=== PATIENT | female | born 1980 | race Two or more races ===

== ENCOUNTER 2017-01-29 10:57 | Emergency (ER) | payer MEDICAID ==
[2017-01-29] MEDS ORDERED: ACETAMINOPHEN 325 MG TABLET PO ONE (11:55)
[2017-01-29] MEDS ORDERED: PSEUDOEPHEDRINE HCL 30 MG TABLET PO ONE (11:55)
[2017-01-29] MEDS ORDERED: DIPHENHYDRAMINE HCL 25 MG CAPSULE PO ONE (11:55)
[2017-01-29] MEDS ORDERED: ONDANSETRON HCL 8 MG TABLET PO ONE (11:55)
--- NOTE | 2017-01-29 12:29 | ER Document Report ---
HPI - HPI Patient complains to provider of: Headache, body aches and sore throat Pain Level: 4 Context: Patient is a 36-year-old. The emergency department complaining of headache, body aches and sore throat for the past day. Patient states that her nephew and her sister been sick at home. She denies that they were diagnosed with flu or strep. Patient states that she has nasal congestion with clear nasal drainage, nonproductive cough, sore throat with headache and body aches. She denies any fevers or chills, difficulty swallowing, difficulty breathing, shortness of breath, chest pain, wheezing, nausea, vomiting, diarrhea, constipation, abdominal pain, urinary symptoms. Patient states that she took Advil for her headache which did resolve that. She denies any history of migraine. - DERM Skin Color: Normal Past Medical History - Social History Smoking Status: Never Smoker Family History: Reviewed & Not Pertinent Patient has suicidal ideation: No Patient has homicidal ideation: No Renal/ Medical History: Denies: Hx Peritoneal Dialysis Vertical Provider Document - CONSTITUTIONAL Agree With Documented VS: Yes Exam Limitations: No Limitations General Appearance: WD/WN, No Apparent Distress Notes: PHYSICAL EXAM GENERAL: Alert, interacts well. HEAD: Normocephalic, atraumatic. EYES: Pupils equal, round, and reactive to light. Extraocular movements intact. ENT: Oral mucosa moist, tongue midline. Uvula midline. Airway patent. No evidence of tonsillar enlargement, peritonsillar abscess, retropharyngeal abscess. NECK: Full range of motion. Supple. Trachea midline. LUNGS: Clear to auscultation bilaterally, no wheezes, rales, or rhonchi. No respiratory distress. HEART: Regular rate and rhythm. No murmurs, gallops, or rubs. ABDOMEN: Soft, nondistended, nontender. No guarding, rebound, or rigidity.. Bowel sounds present in all 4 quadrants. EXTREMITIES: Moves all 4 extremities spontaneously. No edema, radial and dorsalis pedis pulses 2/4 bilaterally. No cyanosis. NEUROLOGICAL: Alert and oriented x4. Normal speech. PSYCH: Normal affect, normal mood. SKIN: Warm, dry, normal turgor. No rashes or lesions noted. - INFECTION CONTROL TRAVEL OUTSIDE OF THE [place] IN LAST 30 DAYS: No - RESPIRATORY O2 Sat by Pulse Oximetry: 98 Course - Re-evaluation Re-evalutation: 01/29/17 14:31 Patient is a 36-year-old female hemodynamically stable, no acute distress and afebrile. Patient's rapid strep came back negative. Will send patient home on [id number] medications to manage her upper respiratory symptoms. - Vital Signs Vital signs: Temp Pulse Resp BP Pulse Ox 97.7 F 68 14 128/66 H 98 01/29/17 11:01 01/29/17 11:01 01/29/17 11:01 01/29/17 11:01 01/29/17 11:01 Discharge - Discharge Clinical Impression: Pharyngitis Condition: Good Disposition: HOME, SELF-CARE Instructions: Viral Syndrome ([facility]), Use of Wvyj-Yst-Dxyxcri Ibuprofen ([facility]), Headache ([facility]) Additional Instructions: Be sure to drink plenty of clear fluids. Oznh-zep-[id number] medications: Benadryl, pseudophedrine, advil and mucinex Forms: Return to Work Referrals: GUS OCAMPO MD [Primary Care Provider] - Follow up as needed Print Language: Luxembourgish
[2017-01-29 12:47] VITALS: BP 94/59
== END 2017-01-29 12:47 | disposition home or self-care (01) ==
LOC: ER 10:57
DX: J02.9 Acute pharyngitis, unspecified (principal); R51 Headache; M79.1 Myalgia
CPT/HCPCS: 99283; 87070; 87880; J3490 ×2; S0119

== ENCOUNTER 2017-05-24 11:18 | Emergency (ER) | payer SELFPAY ==
[2017-05-24 11:23] VITALS: BP 117/80
[2017-05-24] MEDS ORDERED: KETOROLAC TROMETHAMINE 60 MG/2 ML SDV IM ONE (11:52)
--- NOTE | 2017-05-24 11:53 | ER Document Report ---
ED Medical Screen (RME) - General Chief Complaint: Pain All Over Stated Complaint: FEVER Time Seen by Provider: 05/24/17 11:42 Mode of Arrival: Ambulatory Information source: Patient TRAVEL OUTSIDE OF THE [place] IN LAST 30 DAYS: No - HPI Patient complains to provider of: Fever and body aches Onset: Yesterday - Related Data Allergies/Adverse Reactions: No Known Allergies Allergy (Verified 05/24/17 11:23) Past Medical History - Social History Chew tobacco use (# tins/day): No Frequency of alcohol use: None Drug Abuse: None Renal/ Medical History: Denies: Hx Peritoneal Dialysis - Immunizations Hx Diphtheria, Pertussis, Tetanus Vaccination: No Physical Exam - Vital signs Vitals: Temp Pulse Resp BP Pulse Ox 98.4 F 64 18 117/80 99 05/24/17 11:20 05/24/17 11:20 05/24/17 11:20 05/24/17 11:20 05/24/17 11:20 Course - Vital Signs Vital signs: Temp Pulse Resp BP Pulse Ox 98.4 F 64 18 117/80 99 05/24/17 11:20 05/24/17 11:20 05/24/17 11:20 05/24/17 11:20 05/24/17 11:20
[2017-05-24 12:22] LABS: ABSOLUTE LYMPHOCYTES (AUTO) 1.3 10^3/uL (0.5-4.7); ABSOLUTE MONOCYTES (AUTO) 0.5 10^3/uL (0.1-1.4); ABSOLUTE NEUT (AUTO) 3.4 10^3/uL (1.7-8.2); BASOPHILS % (AUTO) 0.6 % (0-2); EOSINOPHILS % (AUTO) 0.7 % (0-6); HEMATOCRIT 34.7 % (36.0-47.0); HEMOGLOBIN 10.9 g/dL (12.0-15.5); LYMPHOCYTES % (AUTO) 24.4 % (13-45); MEAN CORPUSCULAR HEMOGLOBIN 23.2 pg (27.0-33.4); MEAN CORPUSCULAR HGB CONC 31.5 g/dL (32.0-36.0); MEAN CORPUSCULAR VOLUME 74 fl (80-97); MONOCYTES % (AUTO) 9.2 % (3-13); RED BLOOD COUNT 4.72 10^6/uL (3.72-5.28); RED CELL DISTRIBUTION WIDTH 16.1 % (11.5-14.0); SEGMENTED NEUTROPHILS % (AUTO) 65.1 % (42-78); WHITE BLOOD COUNT 5.2 10^3/uL (4.0-10.5)
[2017-05-24 12:27] LABS: APPEARANCE,URINE CLOUDY; BILIRUBIN,URINE NEGATIVE (NEGATIVE); GLUCOSE, URINE NEGATIVE (NEGATIVE); KETONES,URINE NEGATIVE (NEGATIVE); LEUKOCYTE ESTERASE,URINE SMALL (NEGATIVE); NITRITE,URINE NEGATIVE (NEGATIVE); PROTEIN,URINE NEGATIVE (NEGATIVE); URINE SPECIFIC GRAVITY 1.026; UROBILINOGEN,URINE NEGATIVE mg/dL (<2.0)
[2017-05-24 12:49] LABS: ALANINE AMINOTRANSFERASE 26 U/L (9-52); ALBUMIN 4.4 g/dL (3.5-5.0); ALKALINE PHOSPHATASE 93 U/L (38-126); ANION GAP 10 (5-19); ASPARTATE AMINO TRANSFERASE 22 U/L (14-36); BILIRUBIN,DIRECT 0.4 mg/dL (0.0-0.4); BILIRUBIN,TOTAL 0.9 mg/dL (0.2-1.3); BLOOD UREA NITROGEN 11 mg/dL (7-20); CALCIUM 9.8 mg/dL (8.4-10.2); CARBON DIOXIDE 25 mmol/L (22-30); CHLORIDE 105 mmol/L (98-107); CREATININE RESULT 0.69 mg/dL (0.52-1.25); GLUCOSE 92 mg/dL (75-110); POTASSIUM 4.5 mmol/L (3.6-5.0); SODIUM 140.3 mmol/L (137-145); TOTAL PROTEIN 7.8 g/dL (6.3-8.2)
--- NOTE | 2017-05-24 13:08 | RADIOLOGY REPORT (SQ) ---
EXAM DESCRIPTION: CHEST PA/LAT COMPLETED DATE/TIME: 05/24/2017 12:58 pm REASON FOR STUDY: fever COMPARISON: None. EXAM PARAMETERS: NUMBER OF VIEWS: two views TECHNIQUE: Digital Frontal and Lateral radiographic views of the chest acquired. RADIATION DOSE: NA LIMITATIONS: none FINDINGS: LUNGS AND PLEURA: No opacities, masses or pneumothorax. No pleural effusion. MEDIASTINUM AND HILAR STRUCTURES: No masses or contour abnormalities. HEART AND VASCULAR STRUCTURES: Heart normal size. No evidence for failure. BONES: No acute findings. HARDWARE: None in the chest. OTHER: No other significant finding. IMPRESSION: NO SIGNIFICANT RADIOGRAPHIC FINDING IN THE CHEST. TECHNICAL DOCUMENTATION: JOB ID: [id number] [employer]- All Rights Reserved
--- NOTE | 2017-05-24 13:29 | ER Document Report ---
ED General - General Chief Complaint: Pain All Over Stated Complaint: FEVER Time Seen by Provider: 05/24/17 11:42 Mode of Arrival: Ambulatory TRAVEL OUTSIDE OF THE [place] IN LAST 30 DAYS: No - HPI Notes: 36-year-old female distant history of breast cancer treated with surgery presents with subjective fever, left frontal headache, general aches and pains diffusely. She has taken Tylenol and is unsure how high the fever could have been. Symptoms started yesterday. Denies cough cold symptoms rhinorrhea or sore throat. No abdominal pain nausea vomiting or diarrhea. Denies tooth pain. Headache is sharp more left frontal. There is no associated neck stiffness. Denies dysuria or hematuria. No sick contacts that she knows of. Please note the history was used with the [employer] video phone. - Related Data Allergies/Adverse Reactions: No Known Allergies Allergy (Verified 05/24/17 11:23) Past Medical History - General Information source: Patient - Social History Smoking Status: Never Smoker Chew tobacco use (# tins/day): No Frequency of alcohol use: None Drug Abuse: None Family History: Reviewed & Not Pertinent Renal/ Medical History: Denies: Hx Peritoneal Dialysis - Immunizations Hx Diphtheria, Pertussis, Tetanus Vaccination: No Review of Systems - Review of Systems -: Yes All other systems reviewed and negative Physical Exam - Vital signs Vitals: Temp Pulse Resp BP Pulse Ox 98.4 F 64 18 117/80 99 05/24/17 11:20 05/24/17 11:20 05/24/17 11:20 05/24/17 11:20 05/24/17 11:20 - Notes Notes: GENERAL: VS as per nursing doc. Well-appearing, well-nourished and in no acute distress. HEAD: Atraumatic, normocephalic. EYES: Pupils equal round and reactive to light, extraocular movements intact, sclera anicteric, no conjunctival injection or discharge. ENT: Nares patent, oropharynx clear without exudates, moist mucous membranes. NECK: Normal range of motion, supple without lymphadenopathy. LUNGS: Breath sounds clear to auscultation bilaterally and equal. No wheezes rales or rhonchi. HEART: Regular rate and rhythm without murmurs. ABDOMEN: Soft, non-tender, normoactive bowel sounds. No guarding, no rebound. No masses appreciated. No [place] sign. BACK: Bilateral CVA tenderness. EXTREMITIES: Normal range of motion, no calf tenderness, no edema. NEUROLOGICAL: Cranial nerves grossly intact. Normal speech. Normal sensory and motor exams. No gross cerebellar abnormalities. No meningeal signs. PSYCH: Normal mood, normal affect. SKIN: Warm, dry, normal turgor, no lesions noted. No petechiae. Course - Re-evaluation Re-evalutation: 05/24/17 13:30 Patient really has no infectious symptoms other than the headache. She did have bilateral CVA tenderness with concern of mine that she could have pyelonephritis. White blood cell count is normal. We will treat her urine and I have given her complete discharge instructions on returning for worsening or other concern. She has missed work yesterday and needs work notes. She understands warning signs to watch for. - Vital Signs Vital signs: Temp Pulse Resp BP Pulse Ox 98.4 F 64 18 117/80 99 05/24/17 11:20 05/24/17 11:20 05/24/17 11:20 05/24/17 11:20 05/24/17 11:20 - Laboratory Result Diagrams: 05/24/17 12:00 05/24/17 12:00 Laboratory results interpreted by me: 05/24/17 05/24/17 12:00 12:00 Hgb 10.9 L Hct 34.7 L MCV 74 L MCH 23.2 L MCHC 31.5 L RDW 16.1 H Urine Blood MODERATE H Ur Leukocyte Esterase SMALL H Discharge - Discharge Clinical Impression: Febrile illness, acute, UTI (urinary tract infection) Condition: Good Disposition: HOME, SELF-CARE Instructions: Trimethoprim-Sulfa ([facility]) Additional Instructions: Please return for worsening or other concern. Prescriptions: Acetaminophen with Codeine [Tylenol #3 Tablet] 1 - 2 each PO Q6HP PRN #14 tablet PRN Reason: For Pain Sulfamethoxazole/Trimethoprim [Bactrim Ds Tablet] 1 each PO BID #20 tablet Forms: Return to Work Referrals: [facility] [Provider Group] - Follow up in 3-5 days
[2017-05-24] MEDS ORDERED: SULFAMETHOXAZOLE/TRIMETHOPRIM 800-160 MG TABLET PO ONE (13:35)
== END 2017-05-24 13:52 | disposition home or self-care (01) ==
LOC: ER 11:18
DX: N39.0 Urinary tract infection, site not specified (principal); R50.9 Fever, unspecified; M79.1 Myalgia; R51 Headache
CPT/HCPCS: 99283; 96372; 36415; 87040; 85025; 81025; 80053; 81001; 71020; J1885